=== PATIENT | female | born 1985 | race Two or more races ===

== ENCOUNTER 2024-08-01 07:00 | Emergency (ER) | payer SELFPAY ==
[2024-08-01 07:01] VITALS: BP 143/90
[2024-08-01] MEDS: TORADOL 30 MG IM (08:02)
--- NOTE | 2024-08-01 08:15 | ED.GENMED ---
History of Present Illness
General
Chief Complaint: Musculo-Skeletal Complaint
Source: patient
Exam Limitations: none
Time Seen by Provider: 08/01/24 07:07
Nursing documentation reviewed up to this point in time: agreed with
History of Present Illness
History of Present Illness:
39-year-old female presenting to the emergency department today with concerns of upper back pain with radiation to the left arm over the past 3 weeks worse with some specific movements was previously on a steroid and muscle relaxer from urgent care
last week with no improvement. Has not followed up otherwise. Denies any chest pain shortness of breath any recent trauma surgery immobilization, leg swelling.
Past History
Past History
ED Past Medical History: None
ED Past Surgical History: Tonsilectomy
Social History
Tobacco: Non-smoker
Alcohol: Other
Drug: None
Personal:
Living: with family
Employment: Employed
Family History
Family History: Other
Review of Systems
Review of Systems
Allergies reviewed?: Yes
All Other Systems: ROS reviewed and negative except as documented in HPI and ROS
Phy Exam
Physical Exam
Physical Exam:
GENERAL: Alert , in no apparent distress
EYE: pupils equal and reactive
NECK: Supple, no significant adenopathy.
ENT: o/p clr, mmm.
CARDIAC: Regular rate and rhythm .
LUNGS: Clear breath sounds bilaterally, no acute respiratory distress, no wheezes/rales/rhonchi
ABDOMEN: Soft, without focal tenderness, no r/g, no cvat
NEUROLOGICAL: Alert and oriented, no focal neuro deficits
SKIN: Warm and dry, skin intact.
MUSCULOSKELETAL: No edema, well perfused.
PSYCH: Normal and appropriate interaction.
Course
Orders/Labs/Results
Orders:
Orders
08/01/24 07:40
CR Cervical Spine 2 or 3 Vw Urgent
Comment:
Reason For Exam: neck pain left arm radiating pain
Thoracic Spine 3 Views CR [CR Thoracic Spine 3 Views] Urgent
Comment:
Reason For Exam: left arm pain and upper backp ain
08/01/24 07:41
Ketorolac [Toradol] 30 mg IM NOW STA
08/01/24 09:20
Beta Hcg Urine Qualitative Screen [HCG, Urine Qualitative Screen] Urgent
Oxycodone/Acetaminophen [Percocet 5/325] 1 tablet PO NOW STA
Test Result ONCE
Vital Signs
Initial and Last Documented VS:
Initial Vital Signs
Temp Pulse Resp BP Pulse Ox
98.1 F 67 16 143/90 100
08/01/24 07:01 08/01/24 07:01 08/01/24 07:01 08/01/24 07:01 08/01/24 07:01
Last Documented Vital Signs
Temp Pulse Resp BP Pulse Ox
98.1 F 67 16 143/90 100
08/01/24 07:01 08/01/24 07:01 08/01/24 07:01 08/01/24 07:01 08/01/24 07:01
MDM/Problems Addressed
MDM/Problems Addressed:
39-year-old female presenting to the emergency department today with concerns of upper back pain over the past 3 weeks with radiation to left arm. Seen in urgent care given steroids as well as muscle relaxer without relief. Upon arrival vital
signs are normal. Patient with increased comfort with some movements of left upper extremity but otherwise neurologically intact. No redness or warmth to the back or neck. X-rays without emergent findings but did show some degenerative disc
disease. Patient stable for outpatient management return precautions given.
*Critical Care Note
Total Time (30-74mins, 75-104mins- exclusive of procedures): Not Applicable
ED Attending Note
-
Portions of this chart may have been created with voice recognition software.� Occasional wrong word or��sound alike� substitutions may have occurred due to the inherent limitations of voice recognition software.
Discharge Plan
Departure
Patient Disposition: Home (Routine Discharge)
Date of Disposition: 08/01/24
Time of Disposition: 10:10
Patient with high blood pressure during this ER visit?: No
Condition: Good
Covid-19: Not Applicable
Discharge Problem:
Back pain, Radicular pain
Instructions: Muscle and Bone Pain (DC)
Prescriptions:
New
meloxicam 15 mg tablet
15 mg PO DAILY 14 Days Qty: 14 0RF
No Action
doxycycline hyclate 100 MG capsule
100 mg PO Q12 7 Days Qty: 13 0RF
nitrofurantoin monohyd/m-cryst [Macrobid] 100 mg capsule
100 mg PO BID Qty: 10 0RF
Referrals:
Kike Stanley MD [Active] - Follow up in 5-7 days
García Rao MD [Active] -
NONE,* [Family Provider] -
Activity Restrictions/Additional Instructions:
You came to the emergency department today with concerns of back discomfort. Please take the prescribed medication and follow-up with the outpatient clinic. Return to the emergency department for any worsening, new or concerning symptoms.
Interventions
Interventions:
*Risk Screen - Suicide Last Done: 08/01/24 07:01
*General Assessment Last Done: 08/01/24 07:01
*ED COVID-19 Vaccine History Last Done: 08/01/24 07:01
Discharge Date and Time
Print Language: ANDORRAN
[2024-08-01] MEDS: PERCOCET 5/325 1 TABLET PO (10:52)
== END 2024-08-01 10:56 | disposition home or self-care (01) ==
LOC: EMR 07:00
PROVIDERS: EMERGENCY PHYSICIAN Student in an Organized Health Care Education/Training Program
DX: M54.9 Dorsalgia, unspecified (principal); M54.10 Radiculopathy, site unspecified
CPT/HCPCS: 99284; 96372; 72040; 72072